=== PATIENT | male | born 1975 | race Caucasian/White ===

== ENCOUNTER 2025-04-18 18:39 | Emergency (ER) | payer SELFPAY ==
[~2025-04-18] VITALS: Ht 167.6 cm; Wt 104.0 kg
[2025-04-18 18:45] VITALS: TEMP 36.7; O2SAT 97
[2025-04-18 23:43] VITALS: BP 160/89; PULSE 91; RESP 20; O2SAT 97
== END 2025-04-18 23:44 | disposition home or self-care (01) ==
LOC: ER 18:39
DX: F10.129 Alcohol abuse with intoxication, unspecified (principal); Y90.9 Presence of alcohol in blood, level not specified
CPT/HCPCS: 99284; Z7610; A4606